=== PATIENT | female | born 1970 | race Caucasian/White ===

== ENCOUNTER 2024-09-21 01:21 | Outpatient (CLI) | payer OTHER, SELFPAY ==
--- NOTE | 2024-09-21 07:00 | DI.US_ITS ---
Exam(s) US NEEDLE LOCAL OTHER WO RAD EXAM: left neck mass,left thyroid nodule,ULTRASOUND GUIDED BX,R22.1,E04.1 COMPARISON: No exams were available for comparison TECHNIQUE: Ultrasound performed using standard protocol. FINDINGS: Sonography was provided for Dr. Nugent during the performance of a left thyroid biopsy. Please refe r to the procedure report for complete details. DATA REPOSITORY:
--- NOTE | 2024-09-21 11:30 | PAPNONF_PTH ---
PATIENT: Jazzmine Silver LOC: [facility] U#:[id number] AGE/SX: 54/F ROOM: RE09/21/[address]: Yan Nugent MD : 1970 BED: DIS: 09/21/2024 SPEC #: [id number] RECD: 09/21/24 13:04 STATUS: SAVANAH RETello #: [id number] KAZ: 09/21/24 11:[address]: Yan Nugent DEPT: [facility] Cytology RECD BY: Keisha Reynolds ENTERED: 09/21/24 13:05 SP TYPE: NIMISHA BHAT DR: Chaya Perea NP Tissues: 1 - BODY FLUID CYTO-FINE NEEDLE ASPIRATE-[facility] Procedures: BODY FLUID CYTO-FINE NEEDLE ASPIRATE-[facility] Comments: [id number] (PATH FNA CONSULT) (REFRIGERATED)
--- NOTE | 2024-09-21 11:45 | W.PROCNOTE ---
Date of service: 09/21/24 Time of Service: 11:45 Procedure Note Date of procedure: 09/21/24 Procedure: Ultrasound-guided FNA, left thyroid nodule, pathology present Surgeon/Proceduralist/Physician: Yan Nugent Procedure Diagnosis: Left thyroid nodule meeting criteria for biopsy Procedure Indications: Patient has a left-sided thyroid nodule that meets criteria for biopsy. Options were explained to the patient regarding further management. She elected undergo the above procedure. Risks including bleeding, infection, and need for further treatment as well as known diagnosis were discussed with the patient at length. Written consent was obtained. The below was then performed. All questions were answered prior to the procedure. Procedure Description: The patient was positioned in a supine position with her neck slightly extended. She was prepped and draped in appropriate fashion and ultrasound used to localize the left-sided thyroid nodule. 1% lidocaine with 1/100,000 epinephrine was injected in the skin and subcutaneous tissues overlying the thyroid nodule and then a 25-gauge needle was passed into the thyroid nodule repeatedly. 2 passes were required to meet cellular adequacy. After ensuring that cellularity, 2 additional passes were made for potential Afirma testing. The patient tolerated procedure well. After ensuring adequate hemostasis, sterile dressing was applied and the patient was allowed to sit, stand, and ambulate. Her vital signs remained stable. She will remove the bandage in a couple of hours and not replace it. She will call with any signs of infection. She will call if she does not hear from me with regard to pathology results within 1 week. She may use ibuprofen or Tylenol for any discomfort. She may get the wound wet starting tonight. She had no further questions. She is comfortable with the plan. She will plan to use ibuprofen or Tylenol if needed for any discomfort.
== END 2024-09-21 01:41 ==
LOC: DI 01:21
PROVIDERS: PCP Physician Assistant; Visit Provider Otolaryngology
DX: E04.1 Nontoxic single thyroid nodule (principal); R22.1 Localized swelling, mass and lump, neck
CPT/HCPCS: 10005; 76942; 88104

== ENCOUNTER 2024-11-09 02:01 | Outpatient (CLI) | payer OTHER, SELFPAY ==
--- NOTE | 2024-11-09 06:45 | DI.US_ITS ---
Exam(s) US NEEDLE LOCAL OTHER WO RAD EXAM: US NEEDLE LOCAL OTHER WO RAD CLINICAL HISTORY: Left tail of parotid mass,ultrasound guided bx,r22.1,neck mass. COMPARISON: US US NEEDLE LOCAL OTHER WO RAD from 09/21/2024 TECHNIQUE: Exam was performed by Dr. Nugent. FINDINGS: Images show a needle entering the previously identified left parotid gland mass. Please see procedu re note for details. DATA REPOSITORY:
--- NOTE | 2024-11-09 12:30 | PAPNONF_PTH ---
PATIENT: Jazzmine Silver LOC: [facility] U#:[id number] AGE/SX: 54/F ROOM: RE11/09/[address]: Yan Nugent MD : 1970 BED: DIS: 11/09/2024 SPEC #: [id number] RECD: 11/09/24 13:05 STATUS: SAVANAH RETello #: [id number] KAZ: 11/09/24 12:[address]: Yan Nugent DEPT: [facility] Cytology RECD BY: Keisha Reynolds ENTERED: 11/09/24 13:07 SP TYPE: NIMISHA BHAT DR: Chaya Perea NP Tissues: 1 - BODY FLUID CYTO-FINE NEEDLE ASPIRATE-[facility] Procedures: BODY FLUID CYTO-FINE NEEDLE ASPIRATE-[facility] Comments: [id number] (PATH FNA CONSULT) (REFRIGERATED)
--- NOTE | 2024-11-09 12:52 | W.PROCNOTE ---
Date of service: 11/09/24 Time of Service: 12:52 Procedure Note Date of procedure: 11/09/24 Procedure: Ultrasound-guided FNA, left neck mass Surgeon/Proceduralist/Physician: Yan Nugent Procedure Diagnosis: Left neck mass Procedure Indications: The patient has a left-sided neck mass of unclear significance. Options were explained to the patient regarding further management. She elected undergo the above procedure. Sent result and signed prior to procedure. The below was then performed. Procedure Description: The patient was positioned in supine position with her head turned to the right. She was prepped and draped in appropriate fashion and 1% lidocaine with 1/100,000 epinephrine injected over the medial aspect of the mass, into the skin and subcutaneous tissues. Using ultrasound to ensure placement, a 25-gauge needle was passed into the the nodule and after multiple passes, was withdrawn and checked by pathology. An additional pass for additional material was taken as well despite the fact that there appeared to be cellular adequacy on the first pass. Following this, after ensuring adequate hemostasis, sterile dressing was applied to the site and the patient was allowed to sit, stand, and ambulate. Her vital signs remained stable. She will remove the bandage in a couple of hours. She will avoid any strenuous activity today. She will call with any signs of infection, should concerns arise otherwise, or if she does not hear from me within 1 week with regard to the results. She may use ibuprofen or Tylenol for any discomfort. She had no further questions. She is comfortable with this plan.
== END 2024-11-09 02:21 ==
LOC: DI 02:01
PROVIDERS: PCP Physician Assistant; Visit Provider Otolaryngology
DX: D11.0 Benign neoplasm of parotid gland (principal)
CPT/HCPCS: 10005; 76942; 88104